=== PATIENT | female | born 1990 | race Caucasian/White ===

== ENCOUNTER 2016-05-29 15:49 | Emergency (ER) | payer MEDICAID, OTHER ==
[2016-05-29 16:07] VITALS: BP 135/76
[2016-05-29] MEDS ORDERED: Ketorolac INJ* 60 MG/2 ML VIAL IM ONE (16:31)
--- NOTE | 2016-05-29 16:38 | UC ---
Back Pain HPI - HPI Summary HPI Summary: worsening back pain over the past 2 weeks, has had chronic issues with back pain , no known injury pain radiates in the left buttock down in to back of leg - History of Current Complaint Chief Complaint: UCBackPain Stated Complaint: BACK PAIN Time Seen by Provider: 05/29/16 16:21 Hx Obtained From: Patient Hx Last Menstrual Period: 05/09/16 ?: No Onset/Duration: Gradual Onset, Lasting Weeks - 2, Still Present Timing: Constant Severity Initially: Moderate Severity Currently: Moderate Pain Intensity: 8 Pain Scale Used: 0-10 Numeric Back Pain: Is Discrete @ - left side in to buttock Character: Aching, Stiffness Aggravating: Movement, Lifting Associated Signs And Symptoms: Positive: Negative - Allergies/Home Medications Allergies/Adverse Reactions: Allergies Allergy/AdvReac Type Severity Reaction Status Date / Time Acetaminophen [From Vicodin] Allergy Itching Verified 03/12/16 14:23 Hydrocodone [From Vicodin] Allergy Itching Verified 03/12/16 14:23 nut Allergy Anaphylatic Uncoded 03/12/16 14:23 Shock Home Medications: Home Medications Acetaminophen [Tylenol] 650 05/29/16 [History] PMH/Surg Hx/FS Hx/Imm Hx Previously Healthy: No Cardiovascular History Of: Denies: Hypertension - Surgical History Surgical History: Yes Surgery Procedure, Year, and Place: gastric bypass surgery 2013. Neck abcess - Family History Known Family History: Positive: Other - Positive FMH Abscess Family History: no cardio vascular issues reported in family lineage - Social History Occupation: Employed Full-time Lives: With Family Alcohol Use: None Substance Use Type: None Smoking Status (MU): Never Smoked Tobacco - Immunization History Most Recent Influenza Vaccination: fall 2015 Review of Systems Constitutional: Negative Skin: Negative Eyes: Negative ENT: Negative Respiratory: Negative Cardiovascular: Negative Gastrointestinal: Negative Genitourinary: Negative Motor: Negative Neurovascular: Negative Musculoskeletal: Arthralgia, Myalgia Neurological: Negative Psychological: Negative All Other Systems Reviewed And Are Negative: Yes Physical Exam Triage Information Reviewed: Yes Appearance: Well-Appearing, No Pain Distress, Well-Nourished Vital Signs: Initial Vital Signs Temp 99.5 F 05/29/16 15:58 Pulse 115 05/29/16 15:58 Resp 16 05/29/16 15:58 BP 135/76 05/29/16 15:58 Pulse Ox 100 05/29/16 15:58 Vital Signs Reviewed: Yes Eye Exam: Normal Eyes: Positive: Conjunctiva Clear ENT Exam: Normal ENT: Positive: Normal ENT inspection, Hearing grossly normal, Pharynx normal. Negative: Nasal congestion, Nasal drainage, Tonsillar swelling, Tonsillar exudate, Trismus, Muffled/hoarse voice Neck exam: Normal Neck: Positive: Supple, Nontender, No Lymphadenopathy Respiratory Exam: Normal Respiratory: Positive: Chest non-tender, Lungs clear, Normal breath sounds, No respiratory distress Cardiovascular Exam: Normal Cardiovascular: Positive: Pulses Normal, Brisk Capillary Refill, Tachycardia Abdominal Exam: Normal Abdomen Description: Positive: Nontender, No Organomegaly, Soft Bowel Sounds: Positive: Present Musculoskeletal Exam: Normal Musculoskeletal: Positive: Strength Intact, ROM Intact Neurological Exam: Normal Neurological: Positive: Alert, Muscle Tone Normal Psychological Exam: Normal Skin Exam: Normal Diagnostics - Laboratory Diagnostic Studies Completed/Ordered: ua 500 leuks, (-) nitrites Back Pain Course/Dx - Course Course Of Treatment: bactrim, flexeril, follow with pcp - Differential Dx/Diagnosis Differential Diagnosis/HQI/PQRI: Arthritis, Strain, Sprain Provider Diagnoses: uti, back spasm Discharge - Discharge Plan Condition: Stable Disposition: HOME Prescriptions: Cyclobenzaprine TAB* [Flexeril TAB*] 10 mg PO TID PRN #15 tab PRN Reason: pain Sulfamethox/Trimethoprim DS* [Bactrim DS 800/160 TAB*] 1 tab PO BID #10 tab Patient Education Materials: Urinary Tract Infection in Women (ED), Sciatica ( ED) Forms: *Work Release Referrals: [facility] [place] [facility]FERR[facility] [Outside] - 5 Days No Primary Care Phys,NOPCP [Primary Care Provider] -
[2016-05-29] MEDS ORDERED: Ketorolac INJ* 30 MG/ML 1 ML VIAL ONE (17:02)
[2016-05-29] MEDS ORDERED: Cyclobenzaprine TAB* 10 MG PO ONE (17:33)
[2016-05-29] MEDS ORDERED: Sulfamethox/Trimethoprim DS 800/160* TAB PO ONE (17:33)
== END 2016-05-29 17:42 | disposition home or self-care (01) ==
LOC: UCEAST 15:49
DX: N39.0 Urinary tract infection, site not specified (principal); M62.830 Muscle spasm of back; Z88.5 Allergy status to narcotic agent; M54.9 Dorsalgia, unspecified; G89.29 Other chronic pain
CPT/HCPCS: 81002; 87086; 96372; 99212; A9270-GY; G0463; J1885